=== PATIENT | female | born 1990 | race Caucasian/White ===

== ENCOUNTER 2022-10-18 17:56 | Outpatient (CLI) | payer OTHER | END 2022-10-18 18:56 | disposition home or self-care (01) | LOC: NST 17:56 | PROVIDERS: ATTEND Obstetrics & Gynecology Gynecology | DX: Z34.83 Encounter for supervision of other normal pregnancy, third trimester (principal) ==

== ENCOUNTER 2022-10-27 10:28 | Inpatient (IN) | payer OTHER ==
[~2022-10-27] VITALS: Ht 172.7 cm; Wt 2.7 kg
[2022-10-27] MEDS ORDERED: PRENATAL + DHA1 EAC1 PO (11:59)
[2022-10-27] MEDS ORDERED: VITAMIN C60 MG PO (12:00)
[2022-10-30] MEDS ORDERED: KETO10TA2 PO (10:53)
[2022-10-30] MEDS ORDERED: OXYC1TAB9 PO (10:54)
== END 2022-10-30 12:24 | disposition home or self-care (01) | DRG 788 ==
LOC: LDR 10:28 → OB/GYN 10-28 00:14
PROVIDERS: ADMIT Obstetrics & Gynecology; ATTEND Obstetrics & Gynecology
PROC: 4A1HXCZ Monitoring of Products of Conception, Cardiac Rate, External Approach (ICD-10-PCS; 2022-10-27)
PROC: 10D00Z1 Extraction of Products of Conception, Low, Open Approach (ICD-10-PCS; principal; 2022-10-27 17:15)
DX: O62.0 Primary inadequate contractions (principal); Z3A.37 37 weeks gestation of pregnancy; Z37.0 Single live birth; Z20.822 Contact with and (suspected) exposure to COVID-19

== ENCOUNTER 2022-11-14 17:04 | Inpatient (IN) | payer OTHER ==
[~2022-11-14] VITALS: Ht 172.7 cm; Wt 94.8 kg
[~2022-11-14 17:04] MED LIST: KETO10TA2 PO; OXYC1TAB9 PO; PRENATAL + DHA1 EAC1 PO; VITAMIN C60 MG PO
--- NOTE | 2022-11-14 17:48 | NUR ---
PACIENTE FEMINA ALERTA Y ORIENTADA X3, REFIERE COMPLICACION EN [place]. PTE ESTA EN ANTIBIOTICOS DESDE EL DE DICIEMBRE SIENDO ATENDIDA POR LA DRA. BOWMAN. PTE REFIERE TENER FIEBRE. SE MONITOREAN VS Y SE UBICA EN [place] DE [place]
--- NOTE | 2022-11-14 18:57 | NUR ---
PTE FEMENINA EVALUADA POR , SE ORIENTA OSBRE ORDENES DE [place] REFIERE COMPRENDER. SE COLECTAN MUESTRAS DE LABORATORIOS Y SE CANALIZA VENA BAJO MEDIDAS ASEPTICAS. SE ADMINISTRA MEDICAMENTO, BAJO MEDIDAS ASEPTICAS. SE NOTIFICA A SONOGRAFIA PARA ESTUDIO PENDIENTE. PTE MANEJADO POR DEAN ROSA.
[2022-11-15] MEDS ORDERED: METOCLOPRAMIDE10 MG (15:39)
[2022-11-15] MEDS ORDERED: SERTRALINE HCL50 MG (15:39)
== END 2022-11-17 13:46 | disposition home or self-care (01) | DRG 776 ==
LOC: ER 17:04 → OB/GYN 22:07
PROVIDERS: ADMIT Obstetrics & Gynecology; ATTEND Obstetrics & Gynecology
PROC: BW21ZZZ Computerized Tomography (CT Scan) of Abdomen and Pelvis (ICD-10-PCS; principal; 2022-11-14)
PROC: 8E0ZXY6 Isolation (ICD-10-PCS; 2022-11-14)
DX: O86.09 Infection of obstetric surgical wound, other surgical site (principal); N99.842 Postprocedural seroma of a genitourinary system organ or structure following a genitourinary system procedure; Z20.822 Contact with and (suspected) exposure to COVID-19; B96.0 Mycoplasma pneumoniae [M. pneumoniae] as the cause of diseases classified elsewhere